=== PATIENT | male | born 1935 | race Caucasian/White ===

== ENCOUNTER 2016-11-27 15:57 | Inpatient (IN) | payer OTHER ==
[~2016-11-27] VITALS: Ht 160 cm; Wt 61.3 kg
[~2016-11-27 15:57] MED LIST: KEFLEX500 MG PO; PRAVASTATIN SOD80 MG; SERTRALINE HCL100 MG; VALIUM5 MG
[2016-11-27] MEDS ORDERED: LEVOTHYROXINE75 MCG PO (16:28)
[2016-11-27] MEDS ORDERED: PRAVASTATIN SOD80 MG PO (16:29)
[2016-11-27] MEDS ORDERED: DIAZEPAM5 MG PO (16:29)
[2016-11-27] MEDS ORDERED: ESCITALOPRAM OX10 MG PO (16:30)
[2016-11-27 18:02] LABS: HEMATOCRIT 34.8 % (38.0-50.0); MCH 27.3 PG (29.0-34.0); MCHC 32.5 G/DL (30.0-36.0); MCV 84.1 FL (86-99); MEAN PLAT.VOLUME 10.2 uM^3 (9.0-12.4); PLATELET COUNT 278 K/uL (156-360); RBC DIS.WIDTH-CV 14.9 % (11.8-14.6); RED BLOOD COUNT 4.14 M/uL (4.00-5.50); WHITE BLOOD COUNT 7.2 K/uL (4.1-10.2)
[2016-11-27 18:13] LABS: CHLORIDE 107 mEq/L (99-109); POTASSIUM 5.1 mEq/L (3.7-5.4); SODIUM 138 mEq/L (136-147)
[2016-11-27 18:15] LABS: GLUCOSE 88 mg/dL (70-99)
[2016-11-27 18:16] LABS: ANION GAP 10 MEQ/L (2-14)
[2016-11-27 18:19] LABS: GFR ESTIMATE (CALCULATED) 56 mL/min/
[2016-11-27 18:20] LABS: UREA NITROGEN (BUN) 27 mg/dL (9-23)
[2016-11-27 19:09] LABS: ADD MIUA? YES; BILIRUBIN NEGATIVE; BLOOD SMALL; COLOR YELLOW ((YELLOW)); GLUCOSE (STRIP) NEGATIVE; KETONES NEGATIVE; LEUKOCYTES MODERATE; NITRITE NEGATIVE; PROTEIN (STRIP) 30; UROBILINOGEN 0.2 MG/DL (0.2-1.0)
[2016-11-27] MEDS ORDERED: ALEVE220 M2 PO (19:45)
[2016-11-27 19:59] LABS: BACTERIA RARE; CASTS PRESENT /LPF; CRYSTALS NONE SEEN; EPITHELIAL CELLS 1+; HYALINE CASTS 0-5 /LPF; MUCUS NONE SEEN; UCUL ADDED? NO
[2016-11-27 22:05] VITALS: BP 164/72
[2016-11-28 04:16] VITALS: BP 166/72
[2016-11-28 06:10] LABS: HEMATOCRIT 31.7 % (38.0-50.0); MCH 26.9 PG (29.0-34.0); MCHC 30.9 G/DL (30.0-36.0); MCV 87.1 FL (86-99); MEAN PLAT.VOLUME 11.2 uM^3 (9.0-12.4); PLATELET COUNT 232 K/uL (156-360); RBC DIS.WIDTH-CV 15.4 % (11.8-14.6); RBC DIS.WIDTH-SD 48.9 % (39-53); RED BLOOD COUNT 3.64 M/uL (4.00-5.50); WHITE BLOOD COUNT 5.1 K/uL (4.1-10.2)
[2016-11-28 06:42] LABS: ALKALINE PHOSPHATASE 150 IU/L (3-129); ANION GAP 12 MEQ/L (2-14); CHLORIDE 108 MEQ/L (99-109); GFR ESTIMATE (CALCULATED) > 59 mL/min/; GLUCOSE 93 mg/dL (70-99); POTASSIUM 4.3 MEQ/L (3.7-5.4); SAMPLE HEMOLYSIS CHECK 0; SAMPLE ICTERIC CHECK 0; SAMPLE LIPEMIA CHECK 0; SODIUM 142 MEQ/L (136-147); TOTAL BILIRUBIN 0.4 MG/DL (0.0-1.0); UREA NITROGEN (BUN) 23 mg/dL (9-23)
[2016-11-28 08:00] VITALS: BP 110/61
[2016-11-28 08:49] VITALS: BP 122/64
[2016-11-28 12:00] VITALS: BP 113/74
[2016-11-28 16:00] VITALS: BP 137/84
[2016-11-28 20:53] VITALS: BP 141/67
[2016-11-29] VITALS: BP 143/72
[2016-11-29 08:00] VITALS: BP 199/83
[2016-11-29 12:15] VITALS: BP 187/78
[2016-11-29 16:00] VITALS: BP 148/87
[2016-11-29 20:23] VITALS: BP 131/72
[2016-11-30] VITALS (7 sets, daily range): BP systolic 125–192; BP diastolic 58–79
[2016-12-01] VITALS: BP 143/69
[2016-12-01 08:32] VITALS: BP 129/61
[2016-12-01] MEDS ORDERED: BICALUTAMIDE50 MG PO (12:33)
[2016-12-01] MEDS ORDERED: FAMOTIDINE20 MG PO (12:33)
[2016-12-01] MEDS ORDERED: OXYCODONE-APAP1 EACH PO (12:33)
[2016-12-01] MEDS ORDERED: POLYETHYLENE GL17 GM PO (12:33)
[2016-12-01] MEDS ORDERED: FENTANYL1 EAC4 TD (12:33)
[2016-12-01] MEDS ORDERED: DOCUSATE SODIU100 MG PO (12:33)
[2016-12-02] MEDS ORDERED: FENTANYL1 EAC4 TD (08:41)
== END 2016-12-01 13:55 | disposition home or self-care (01) | DRG 543 ==
LOC: EXP 15:57 → EME 15:57 → EDOF 19:58 → 5WEST 19:58 → EDOF 19:58 → 5WEST 21:46 → 5EAST 12-01 00:02
PROVIDERS: Emergency Medicine; Internal Medicine
DX: C79.51 Secondary malignant neoplasm of bone (principal); G83.4 Cauda equina syndrome; I73.9 Peripheral vascular disease, unspecified; C61 Malignant neoplasm of prostate; Z85.51 Personal history of malignant neoplasm of bladder; R29.6 Repeated falls; E03.9 Hypothyroidism, unspecified; K59.00 Constipation, unspecified; N39.498 Other specified urinary incontinence; Z90.89 Acquired absence of other organs; Z85.038 Personal history of other malignant neoplasm of large intestine; Z90.49 Acquired absence of other specified parts of digestive tract; F32.9 Major depressive disorder, single episode, unspecified; F41.9 Anxiety disorder, unspecified; E78.00 Pure hypercholesterolemia, unspecified; M54.16 Radiculopathy, lumbar region; G89.3 Neoplasm related pain (acute) (chronic)
CPT/HCPCS: 72158; 77280; 77290; 77295; 77300; 77331; 77334; 77412; 80048; 80053; 81003; 84403; 85027; 99281; 99285; G0103; G0378; G8978 GP CI; G8979 GP CH; G8987 GO CI; G8988 GO CH; J1200; J1644; J2270; J7030